=== PATIENT | female | born 1955 | race African-American/Black ===

== ENCOUNTER 2019-11-05 20:51 | Emergency (ER) | payer OTHER ==
[~2019-11-05] VITALS: Ht 157.5 cm; Wt 68.0 kg
[2019-11-05] MEDS ORDERED: KETOROLAC TROMETHAMINE 30 MG/ML VIAL IM ONE (21:15)
[2019-11-05] MEDS ORDERED: ACETAMINOPHEN 325 MG TAB PO ONE (21:15)
[2019-11-05] MEDS ORDERED: ACETAMINOPHEN 325 MG TAB ONE (21:20)
[2019-11-05] MEDS ORDERED: KETOROLAC TROMETHAMINE 30 MG/ML VIAL ONE (21:20)
--- OUTSIDE RECORDS SUMMARY | 2019-11-05 21:27 | XMS REPORT | Continuity of Care Document ---
Author Author [facility] t Organization [facility] Address [address] [place] [address] Phone Unavailable Care Team Providers Care Rhinologist Name Role Phone Unavailable Unavailable Payers Payer Name Policy Type Policy Number Effective Date Expiration Date S ource Problems Condition Name Condition Details Condition Category Status Onset Date Resolution Date Last Treatment Date Treating Clinician Comments Source Cystocele Cystocele Problem Active 2018-11-05 00:00:00 [facility] Stenosis of cervix Stenosis of Cervix Problem Active 2018-11-05 00:00:0 0 [facility] Type 2 diabetes mellitus Type 2 Diabetes Mellitus Problem Acti ve 2017-07-14 00:00:00 [facility] Proteinuric nephropathy due to diabetes mellitus Prote inuric Nephropathy Due to Diabetes Mellitus Problem Active 2017-02-10 00:00:00 [facility] Mixed hyperlipidemia Mixed [facility] Benign essential hypertension Benign Essential Hypertension Problem Active 2017-02-10 00:00:00 [facility] Immunization Immunization Problem Active 2017-02-10 00:00:00 [facility] Allergies, Adverse Reactions, Alerts This patient has no known allergies or adverse reactions. Social History Smoking Status Start Date Stop Date Source Never Smoker [facility] Demetri de anda Medications Ordered Medication Name Filled Medication Name Start Date Stop Da te Current Medication? Ordering Clinician Indication Dosage Frequency Signature (SIG) Comments Components Source amlodipine 10 mg tablet Take 1 tablet every day by ora l route. amlodipine 10 mg tablet Take 1 tablet every day by oral route. No 1 Q1D amlodipine 10 mg tablet Take 1 tablet every day by oral route. [facility] atorvastatin 20 mg tablet Take 1 tablet every day by o ral route. atorvastatin 20 mg tablet Take 1 tablet every day by oral route. No 1 Q1D atorvastatin 20 mg tablet Take 1 tablet every day by oral route. [facility] Ecotrin Low Strength 81 mg tablet,enteri c coated Take 1 tablet every day by oral route. Ecotrin Low Strength 81 mg tablet,enteri c coated Take 1 tablet every day by oral route. No Ecotrin L ow Strength 81 mg tablet,enteric coated Take 1 tablet every day by oral route. [facility] glimepiride 2 mg tablet Take 1 tablet tw ice a day by oral route with meals for 90 days. glimepiride 2 mg tablet Take 1 tablet tw ice a day by oral route with meals for 90 days. No 1 BID glime piride 2 mg tablet Take 1 tablet twice a day by oral route with meals for 90 days. [facility] hydrochlorothiazide 25 mg tablet Take 1 tablet every d ay by oral route. hydrochlorothiazide 25 mg tablet Take 1 tablet every day by oral route. No 1 Q1D hydrochlorothiazide 25 mg ta blet Take 1 tablet every day by oral route. [facility] metformin ER 500 mg tablet,extended release 24 hr TAKE 2 TABLETS TWICE A DAY metformin ER 500 mg tablet,extended release 24 hr TAKE 2 TABLETS TWICE A DAY No metformin ER 5 00 mg tablet,extended release 24 hr TAKE 2 TABLETS TWICE A DAY [facility] metoprolol succinate ER 100 mg tablet,ex tended release 24 hr Take 1 tablet every day by oral route. metoprolol succinate ER 100 mg tablet,ex tended release 24 hr Take 1 tablet every day by oral route. No 1 Q1D metoprolol succinate ER 100 mg tablet,extended release 24 hr Take 1 tablet every day by oral route. [facility] olmesartan 40 mg tablet Take 1 tablet every day by ora l route. olmesartan 40 mg tablet Take 1 tablet every day by oral route. No 1 Q1D olmesartan 40 mg tablet Take 1 tablet every day by oral route. [facility] Immunizations Ordered Immunization Name Filled Immunization Name Date Status Comments Source influenza, injectable, quadrivalent influenza, injectable, q uadrivalent 2019-02-03 00:00:00 Completed [facility] ice Tdap Tdap 2018-11-05 11:21:00 Completed [facility] Influenza, injectable, MDCK, quadrivalent Influenza, i njectable, MDCK, quadrivalent Unknown Completed [facility] Vital Signs Vital Name Observation Time Observation Value Comments Source BP Diastolic 2019-02-23 00:00:00 70 mm[Hg] [facility] Height 2019-02-23 00:00:00 62 [in_i] [facility] BMI (Body Mass Index) 2019-02-23 00:00:00 28.9 kg/m2 [facility] BP Systolic 2019-02-23 00:00:00 148 mm[Hg] [facility] Body Weight 2019-02-23 00:00:00 158 [lb_av] [facility] BP Diastolic 2018-11-05 00:00:00 80 mm[Hg] [facility] Height 2018-11-05 00:00:00 62 [in_i] [facility] BMI (Body Mass Index) 2018-11-05 00:00:00 28.9 kg/m2 [facility] BP Systolic 2018-11-05 00:00:00 150 mm[Hg] [facility] Body Weight 2018-11-05 00:00:00 158 [lb_av] [facility] BP Diastolic 2018-07-06 00:00:00 72 mm[Hg] [facility] Height 2018-07-06 00:00:00 62 [in_i] [facility] BMI (Body Mass Index) 2018-07-06 00:00:00 27.6 kg/m2 [facility] BP Systolic 2018-07-06 00:00:00 134 mm[Hg] [facility] Body Weight 2018-07-06 00:00:00 151 [lb_av] [facility] BP Diastolic 2018-05-11 00:00:00 78 mm[Hg] [facility] Height 2018-05-11 00:00:00 62 [in_i] [facility] BMI (Body Mass Index) 2018-05-11 00:00:00 28.1 kg/m2 [facility] BP Systolic 2018-05-11 00:00:00 154 mm[Hg] [facility] Body Weight 2018-05-11 00:00:00 153.4 [lb_av] [facility] BP Diastolic 2017-07-14 00:00:00 90 mm[Hg] [facility] Height 2017-07-14 00:00:00 62 [in_i] [facility] BMI (Body Mass Index) 2017-07-14 00:00:00 27.4 kg/m2 [facility] BP Systolic 2017-07-14 00:00:00 180 mm[Hg] [facility] Body Weight 2017-07-14 00:00:00 150 [lb_av] [facility] BP Diastolic 2017-02-21 00:00:00 80 mm[Hg] [facility] Height 2017-02-21 00:00:00 62 [in_i] [facility] BMI (Body Mass Index) 2017-02-21 00:00:00 27.5 kg/m2 [facility] BP Systolic 2017-02-21 00:00:00 144 mm[Hg] [facility] Body Weight 2017-02-21 00:00:00 150.6 [lb_av] [facility] BP Diastolic 2017-02-10 00:00:00 90 mm[Hg] [facility] Height 2017-02-10 00:00:00 62 [in_i] [facility] BMI (Body Mass Index) 2017-02-10 00:00:00 27.8 kg/m2 [facility] BP Systolic 2017-02-10 00:00:00 160 mm[Hg] [facility] Body Weight 2017-02-10 00:00:00 152 [lb_av] [facility] Procedures Procedure Date / Time Performed Performing Clinician Sour e MAMMO, screening, bilateral 2018-11-05 00:00:00 [facility] MAMMO, screening, bilateral 2016-09-11 00:00:00 [facility] Plan of Care Planned Activity Planned Date Details Comments Source Diagnostic Test Pending 2019-02-23 00:00:00 glucose, fingers tick, blood [code = glucose, fingerstick, blood] [facility] Diagnostic Test Pending 2019-02-23 00:00:00 HbA1c (hemoglobi n A1c), blood [code = HbA1c (hemoglobin A1c), blood] [facility] P[facility] 2019-02-23 00:00:00 lipid panel, ser um [code = lipid panel, serum] [facility] Encounters Start Date/Time End Date/Time Encounter Type Admission Type [facility] Facility Care Department Encounter ID Source 2019-02-23 00:00:00 2019-02-23 00:00:00 Jesus Mascorro Jr, MD: [address], [place] [address], Ph. [facility] - [facility] - VM_HOU_Hobby [id number] [facility] 2018-11-05 00:00:00 2018-11-05 00:00:00 Jesus Mascorro Jr, MD: [address], [address], [place] [address], Ph. [facility] - VFP-Hobby [id number] [facility] 2018-07-06 00:00:00 2018-07-06 00:00:00 Jesus Mascorro Jr, MD: [address], [address], [place] [address], Ph. [facility] - [facility] [id number] [facility] 2018-05-11 00:00:00 2018-05-11 00:00:00 Jesus Mascorro Jr, MD: [address], [place] [address], Ph. [facility] - [facility] [id number] [facility] 2017-07-14 00:00:00 2017-07-14 00:00:00 Jesus Mascorro Jr, MD: [address], [place] [address], Ph. [facility] - [facility] [id number] [facility] 2017-02-21 00:00:00 2017-02-21 00:00:00 Jesus Mascorro Jr, MD: [address], [place] [address], Ph. [facility] - [facility] [id number] [facility] 2017-02-10 00:00:00 2017-02-10 00:00:00 Jesus Mascorro Jr, MD: [address], [place] [address], Ph. [facility] [id number] [facility] Results Test Description Test Time Test Comments Results Result Comments Source Glucose [Mass/volume] in Capillary blood 2018-11-05 10:23:00 Test Item Blood Glucose: mg/dl (test code = Blood Glucose: mg/dl) 165 [facility] (dipstick) panel - [id number] 10:23:00* Test Item Value Reference Range Interpretation Comments Color Color (test code = Color Color) light yellow Color Appearance (test code = Color Appearance) clear Color Glucose (test code = Color Glucose) negative Color Bilirubin (test code = Color Bilirubin) negative Color Ketones (test code = Color Ketones) negative Color Specific Lostant (test code = Color Specific Lostant) 1.025 Color Blood (test code = Color Blood) negative Color PH (test code = Color PH) 5.0 Color Protein (test code = Color Protein) negative Color Urobilinogen (test code = Color Urobilinogen) 0.2 Color Nitrites (test code = Color Nitrites) negative Color Leukocytes (test code = Color Leukocytes) negative [facility] RNA [Units/volume] (viral load) in Serum or Plasma by Probe and target amplification [id number] 05:32:00* Test Item Value Reference Range Interpretation Comments hepatitis C antibody (test code = hepatitis C antibody) non- reactive non-reactive signal to cut-off (test code = signal to cut-off) 0.05 <1.0 0 [facility] A[facility]/Hemoglobin.total in [id number] 23:00:00* Test Item Value Reference Range Interpretation Comments hemoglobin A1C (test code = hemoglobin A1C) 7.7 % of total HGB <5.7 H EAG (mg/dL) (test code = EAG (mg/dL)) 174 (calc) EAG (mmol/L) (test code = EAG (mmol/L)) 9.7 (calc) [facility]in [Units/volume] in Serum or [id number] 23:00:00* Test Item Value Reference Range Interpretation Comments TSH (test code = TSH) 2.07 mIU/L 0.40-4.50 [facility]wid04-Iuvvrlvygfzqnd D [Mass/volume] in Serum or Plasma 2017-02-21 22:47:00* Test Item Value Reference Range Interpretation Comments vitamin D,25-oh,total,ia (test code = vitamin D,25-oh,total,ia) 34 NG/mL 30-100 [facility] Auto Differential panel - [id number] 22:38:00 * Test Item Value Reference Range Interpretation Comments white blood cell count (test code = white blood cell count) 9.0 thousand/uL 3.8-10.8 red blood cell count (test code = red blood cell count) 4.39 million/uL 3.80-5.10 hemoglobin (test code = hemoglobin) 12.4 g/dL 11.7-15.5 hematocrit (test code = hematocrit) 38.5 % 35.0-45.0 MCV (test code = MCV) 87.7 fL 80.0-100.0 MCH (test code = MCH) 28.2 pg 27.0-33.0 MCHC (test code = MCHC) 32.2 g/dL 32.0-36.0 RDW (test code = RDW) 12.2 % 11.0-15.0 platelet count (test code = platelet count) 369 thousand/uL 140-400 MPV (test code = MPV) 9.7 fL 7.5-12.5 absolute neutrophils (test code = absolute neutrophils) 6696 duglas ls/uL 2300-3886 absolute band neutrophils (test code = absolute band neutrophils) absolute metamyelocytes (test code = absolute metamyelocytes) absolute myelocytes (test code = absolute myelocytes) absolute promyelocytes (test code = absolute promyelocytes) absolute lymphocytes (test code = absolute lymphocytes) 1629 duglas ls/uL 850-3900 absolute monocytes (test code = absolute monocytes) 477 cells/uL 20 0-950 absolute eosinophils (test code = absolute eosinophils) 144 cells/u L 15-500 absolute basophils (test code = absolute basophils) 54 cells/uL 0- 200 absolute blasts (test code = absolute blasts) absolute nucleated RBC (test code = absolute nucleated RBC) neutrophils (test code = neutrophils) 74.4 % band neutrophils (test code = band neutrophils) metamyelocytes (test code = metamyelocytes) myelocytes (test code = myelocytes) promyelocytes (test code = promyelocytes) lymphocytes (test code = lymphocytes) 18.1 % reactive lymphocytes (test code = reactive lymphocytes) monocytes (test code = monocytes) 5.3 % eosinophils (test code = eosinophils) 1.6 % basophils (test code = basophils) 0.6 % blasts (test code = blasts) nucleated RBC (test code = nucleated RBC) comment(s) (test code = comment(s)) [facility] panel - Serum or Plasma 2017-02-21 22:06:00* Test Item Value Reference Range Interpretation Comments glucose (test code = glucose) 128 mg/dL 65-99 H urea nitrogen (BUN) (test code = urea nitrogen (BUN)) 19 mg/dL 7-25 creatinine (test code = creatinine) 0.74 mg/dL 0.50-0.99 eGFR non-afr. bermudian (test code = eGFR non-afr. bermudian) 88 mL/min/1.73m2 > or = 60 eGFR (test code = eGFR ) 10 2 mL/min/1.73m2 > or = 60 BUN/creatinine ratio (test code = BUN/creatinine ratio) not applica ble 6-22 sodium (test code = sodium) 137 mmol/L 135-146 potassium (test code = potassium) 3.5 mmol/L 3.5-5.3 chloride (test code = chloride) 98 mmol/L 98-110 carbon dioxide (test code = carbon dioxide) 26 mmol/L 20-31 calcium (test code = calcium) 9.7 mg/dL 8.6-10.4 protein, total (test code = protein, total) 8.4 g/dL 6.1-8.1 H albumin (test code = albumin) 4.9 g/dL 3.6-5.1 globulin (test code = globulin) 3.5 g/dL (calc) 1.9-3.7 albumin/globulin ratio (test code = albumin/globulin ratio) 1.4 (calc) 1.0-2.5 bilirubin, total (test code = bilirubin, total) 0.4 mg/dL 0.2-1. 2 alkaline phosphatase (test code = alkaline phosphatase) 56 U/L 33-130 AST (test code = AST) 17 U/L 10-35 ALT (test code = ALT) 15 U/L 6-29 [facility] panel - Serum or [id number] 22:06:00* Test Item Value Reference Range Interpretation Comments cholesterol, total (test code = cholesterol, total) 170 mg/dL <2 00 HDL cholesterol (test code = HDL cholesterol) 39 mg/dL >50 L triglycerides (test code = triglycerides) 78 mg/dL <150 LDL-cholesterol (test code = LDL-cholesterol) 114 mg/dL (calc) H chol/HDLC ratio (test code = chol/HDLC ratio) 4.4 (calc) <5.0 non HDL cholesterol (test code = non HDL cholesterol) 131 mg/dL (ca lc) <130 H [facility] 1999 panel - Serum or Plasma 2016-09-12 13:39:00* Test Item Value Reference Range Interpretation Comments ALT (test code = ALT) 10 U/L 0-55 AST (test code = AST) 14 U/L 5-34 BUN (test code = BUN) 15.5 mg/dL 9.8-20.1 alk phos (test code = alk phos) 50 unit/L 40-150 glucose (test code = glucose) 132 mg/dL 70-99 H albumin (test code = albumin) 4.1 g/dL 3.5-5.0 creatinine (test code = creatinine) 0.81 mg/dL 0.57-1.11 eGFR non- (test code = eGFR non-) > 60 >60 total bilirubin (test code = total bilirubin) 0.3 mg/dL 0.2-1.2 eGFR - (test code = eGFR - ) >60 >60 sodium (test code = sodium) 138 mEq/L 136-145 potassium (test code = potassium) 3.9 mEq/L 3.5-5.1 chloride (test code = chloride) 102 mmol/L 98-107 total protein (test code = total protein) 8.2 g/dL 6.4-8.3 calcium (test code = calcium) 9.8 mg/dL 8.4-10.2 CO2 (test code = CO2) 25.1 mmol/L 23.0-31.0 anion gap (test code = anion gap) 11 calc [facility] panel - Serum or [id number] 13:39:00* Test Item Value Reference Range Interpretation Comments HDL (test code = HDL) 39 mg/dL 40-60 L triglyceride (test code = triglyceride) 93 mg/dL 0-149 VLDL calc. (test code = VLDL calc.) 19 mg/dL cholesterol/HDL ratio (test code = cholesterol/HDL ratio) 5 mg/dL non-HDL cholesterol calc. (test code = non-HDL cholesterol c alc.) 167 mg/dL 0-160 H cholesterol (test code = cholesterol) 206 mg/dL 0-199 H LDL calc. (test code = LDL calc.) 148 mg/dL 0-130 H [facility] [Units/volume] in Serum or [id number] 13:39:00* Test Item Value Reference Range Interpretation Comments TSH (test code = TSH) 1.655 uIU/mL 0.350-4.940 [facility] Differential panel - [id number] 10:20:00 * Test Item Value Reference Range Interpretation Comments WBC (test code = WBC) 8.75 x10*3/?L 2.60-11.20 RBC (test code = RBC) 4.26 10*12/L 3.93-5.87 hemoglobin (test code = hemoglobin) 12.50 g/dL 10.70-15.70 hematocrit (test code = hematocrit) 37.8 % 33.2-46.8 MCV (test code = MCV) 88.7 fL 77.8-103.4 MCH (test code = MCH) 29.3 pg 24.8-35.0 MCHC (test code = MCHC) 33.1 g/dL 31.5-35.9 RDW-SD (test code = RDW-SD) 39.3 fL 35.8-50.4 platelet count (test code = platelet count) 313.0 k/uL 126.7-416. 1 MPV (test code = MPV) 10.9 fL 8.3-13.5 neut% (test code = neut%) 71.8 % 39.5-76.9 lymph% (test code = lymph%) 21.3 % 12.6-45.8 mon% (test code = mon%) 5.3 % 3.7-12.9 eos% (test code = eos%) 1.3 % 0.7-6.4 baso% (test code = baso%) 0.3 % 0.1-1.5 neut# (test code = neut#) 6.3 x10*3/?L 0.6-7.6 lymph# (test code = lymph#) 1.9 x10*3/?L 0.7-3.3 mon# (test code = mon#) 0.5 x10*3/?L 0.2-1.0 eos# (test code = eos#) 0.11 x10*3/?L 0.04-0.44 baso# (test code = baso#) 0.03 x10*3/?L 0.01-0.08 [facility] A1[facility]/Hemoglobin.total in [id number] 09:55:00* Test Item Value Reference Range Interpretation Comments A1C w/EAG (test code = A1C w/EAG) 7.4 % 1.0-5.7 H average blood glucose (test code = average blood glucose) 166 mg/dL [facility]
--- OUTSIDE RECORDS SUMMARY | 2019-11-05 21:27 | XMS REPORT | Encounter Summary ---
Author Organization Unknown Address [address] [place] [address] Phone [phone] Care Team Providers Care [place] Hand Name Role Phone Dr. Jesus Mascorro 3 [phone] Jesus Mascorro Jr, MD 3 [phone] Reason for Visit hyperlipidemia; hypertension; diabetes Instructions 1. Type 2 diabetes mellitus glucose, fingerstick, blood diabetic ophthalmology referral HbA1c (hemoglobin A1c), blood glimepiride 2 mg tablet 2. Mixed hyperlipidemia lipid panel, serum atorvastatin 20 mg tablet 3. Benign essential hypertension amlodipine 10 mg tablet hydrochlorothiazide 25 mg tablet metoprolol succinate ER 100 mg tablet, extended release 24 hr olmesartan 40 mg tablet Discussion Note: None recorded. Patient educational handouts: No information available. Plan of Care Reminders Provider Appointments None recorded. Lab Glucose, Fingerstick, Blood 02/23/2019 _h ou_yusefby HbA1C (Hemoglobin a1C), Blood 02/23/2019 [facility] Lipid Panel, Serum 02/23/2019 [facility] Referral Diabetic Ophthalmology Referral 02/23/2019 Nancy Pablo MD Procedures None recorded. Surgeries None recorded. Imaging None recorded. Medications Name Start Date amlodipine 10 mg tablet Take 1 tablet every day by oral route. atorvastatin 20 mg tablet Take 1 tablet every day by oral route. Ecotrin Low Strength 81 mg tablet,enteri c coated Take 1 tablet every day by oral route. glimepiride 2 mg tablet Take 1 tablet twice a day by oral route with meals for 90 days. hydrochlorothiazide 25 mg tablet Take 1 tablet every day by oral route. metformin ER 500 mg tablet,extended rele ase 24 hr TAKE 2 TABLETS TWICE A DAY metoprolol succinate ER 100 mg tablet,ex tended release 24 hr Take 1 tablet every day by oral route. olmesartan 40 mg tablet Take 1 tablet every day by oral route. Medications Administered None recorded. Vitals Height Weight BMI Blood Pressure 5 ft 2 in 158 lbs 28.9 kg/m2 (1) 148/70 mm[H g] (2) 138/72 mm[Hg] Results Lab Results None recorded. Allergies Code Code System Name Reaction Severity Status Onset NKDA Problems Name Status Onset Date Source Proteinuric Nephropathy Due to Diabetes Mellitus Active 02/10/2017 Mixed Hyperlipidemia Active 02/10/2017 Benign Essential Hypertension Active 02/10/2017 Immunization Active 02/10/2017 Type 2 Diabetes Mellitus Active 07/14/2017 Cystocele Active 11/05/2018 Stenosis of Cervix Active 11/05/2018 Procedures None recorded. Vaccine List Vaccine Type Influenza, injectable, MDCK, quadrivalen t 0.5 mL influenza, injectable, quadrivalent 02/03/2019 Tdap 11/05/20180.5 mL Social History Tobacco Smoking Status Never Smoker Past Encounters 02/23/2019 Type 2 Diabetes Mellitus; Mixed Hyperlipidemia; Benign Essential Hypertension Jesus Mascorro Jr, MD: [address] [facility] [facility] [address], [place] [address], Ph. History of Present Illness Hypertension Reported By: Patient HPI: Severity: mild. Onset/Timing : gradual onset. Alleviating Factors: relieved with rest, medication. Self Care: not under emotional stress, blood pressure goal: 130/80. Associated Symptoms: no shortness of breath, no fatigue, no decline in exercise capacity Diabetes F/U Reported By: Patient HPI: Labs: last A1C result: 8.3. Context: no side effects from medications. Associated Symptoms: no dizziness, no sweats, no headaches, no confusion, no increased thirst, no increased appetite, no increased urination, no blurred vision, no numbness of feet Notes: Endorses medication complian ce. Hyperlipidemia Reported By: Patient HPI: Type of hyperlipidemia: comb ined, hypercholesterolemia. Duration: chronic. Current Therapy: currently taking: atorvastatin, last LDL level: 119 date: 119, last HDL level: 35 date: 35. Complications: no coronary artery disease. Risk Factors: diabetes, hypertension Hypertension Reported By: Patient Review of Systems Comprehensive General Adult ROS, Diabetes F/U ROS Reported By: Patient Constitutional: Constitutional: no significa nt weight gain, no significant weight loss Cardiovascular: Cardiovascular: no chest aditi n, no shortness of breath when walking Respiratory: Respiratory: no cough, no wh eezing, no shortness of breath Endocrine: Endocrine: no fatigue Physical Exam Cardiology Exam, Diabetes, D iabetic Foot Exam Reported By: Patient Constitutional: General Appearance: well-nou rished, well-developed, appears stated age. Level of Distress: comfortable Lungs: Respiratory Effort: unlabore d. Chest Exam: no chest wall tenderness. Auscultation: clear, no wheezing, no rales, no rhonchi Cardiovascular: Rate And Rhythm: regular. He art Sounds: normal S1, physiologically split S2, no rub, no gallop, no click. Systolic Murmur: not heard. Diastolic Murmur: not heard. Extremities: no cyanosis, no edema, no peripheral signs of emboli Peripheral Pulses: Pulses: full and equal in al l extremities except if noted Skin: Inspection and Palpation: wa rm and dry
--- OUTSIDE RECORDS SUMMARY | 2019-11-05 21:27 | XMS REPORT ---
Author Organization Unknown Address [address] [place] [address] Phone [phone] Care Team Providers Care Associate [employer] Name Role Phone Jesus Mascorro Jr Unavailable Unavailable Allergies Code Code System Name Reaction Severity Status Onset NKDA Medications Name Status Start Date Stop Date amlodipine 5 mg tablet Take 1 tablet every day by oral route for 90 days. Active Not available atorvastatin 10 mg tablet Take 1 tablet every day by oral route for 90 days. Active Not available hydrochlorothiazide 12.5 mg capsule Take 1 capsule every day by oral route for 90 days. Active Not available hydrochlorothiazide 25 mg tablet Completed 07/14/2017 lisinopril 20 mg tablet Completed 07/15/19 18 lisinopril 40 mg tablet Completed 07/15/19 18 lisinopril 5 mg tablet Completed 7 metformin ER 500 mg tablet,extended rele ase 24 hr TAKE 2 TABLETS TWICE A DAY Active Not availabl e phenazopyridine 200 mg tablet Completed sulfamethoxazole 800 mg-trimethoprim 160 mg tablet Completed 02/10/2017 Suprep Bowel Prep Kit 17.5 gram-3.13 gram-1.6 gram oral solution Completed 02/10/2017 valsartan 160 mg tablet Take 1 tablet every day by oral route. Active Not available Problems Name Status Onset Date Source Type II Diabetes Mellitus Uncontrolled Unknown 7 Proteinuric Diabetic Nephropathy Active 02/10/2017 Mixed Hyperlipidemia Active 02/10/2017 Benign Essential Hypertension Active 02/10/2017 Immunization Active 02/10/2017 Type 2 Diabetes Mellitus with Multiple Complications Unknown 02/10/2017 Type 2 Diabetes Mellitus Active 07/14/2017 Procedures Date Name Performed by 09/11/2016 MAMMO, Screening, Bilateral [facility] [address] [place] [address] (Work Place) Lab Results Date Name Specimen Result Interpretation Description Value Range Status Address 02/21/2017 Hepatitis C Virus RNA, Quant, PCR, Serum or Plasma Normal Hepatitis C Antibody non-reactive non-reactive Final [facility] Laboratory: [address] [place] Normal Signal to Cut-off 0.05 <1.00 Izabela kapadia [facility] Laboratory: [address] [place] 02/21/2017 CBC W/ Auto Diff Normal White Blood Cell Co unt 9.0 thousand/uL 3.8-10.8 thousand/uL Final [facility] ratory: [address] [place] Normal Red Blood Cell Count 4.39 mill ion/uL 3.80-5.10 million/uL Final [facility] Laboratory: [address] [place] Normal Hemoglobin 12.4 g/dL 11.7-15.5 g/dL Final [facility] Laboratory: [address] [place] Normal Hematocrit 38.5 % 35.0-45.0 % Final [facility] Laboratory: [address] [place] Normal Mcv 87.7 fL 80.0-100.0 fL Final [facility] Laboratory: [address] [place] Normal Mch 28.2 pg 27.0-33.0 pg Final [facility] Laboratory: [address] [place] Normal Mchc 32.2 g/dL 32.0-36.0 g/dL Final [facility] Laboratory: [address] [place] Normal Rdw 12.2 % 11.0-15.0 % Final [facility] Laboratory: [address] [place] Normal Platelet Count 369 thousand/uL 140-4 00 thousand/uL Final [facility] Laboratory: [address] [place] Normal Mpv 9.7 fL 7.5-12.[address] [facility] Laboratory: [address] [place] Normal Absolute Neutrophils 6696 cells/uL 1 500-7800 cells/uL Final [facility] Laboratory: [address] [place] Absolute Band Neutrophils Preliminary [facility] Laboratory: [address], [place] Absolute Metamyelocytes Preliminary [facility] Laboratory: [address] [place] Absolute Myelocytes Pr eliminary [facility]: [address] [facility] Absolute Promyelocytes Preliminary [facility] Laboratory: [address], [place] Normal Absolute Lymphocytes 1629 cells/uL 8 50-3900 cells/uL Final [facility] Laboratory: [address], [place] Normal Absolute Monocytes 477 cells/uL 200- 950 cells/uL Final [facility] Laboratory: [address], [place] Normal Absolute Eosinophils 144 cells/uL 15 -500 cells/uL Final [facility] Laboratory: [address], [place] Normal Absolute Basophils 54 cells/uL 0-200 cells/uL Final [facility] Laboratory: [address], [place] Absolute Blasts Prelim [facility] Laboratory: [address], [place] Absolute Nucleated RBC Preliminary [facility] Laboratory: [address], [place] Normal Neutrophils 74.4 % Final [facility] Laboratory: [address], [place] Band Neutrophils Preli [facility] Laboratory: [address], [place] Metamyelocytes Prelimi [facility] Laboratory: [address], [place] Myelocytes Preliminary [facility] Laboratory: [address], [place] Promyelocytes Prelimin [facility] Laboratory: [address], [place] Normal Lymphocytes 18.1 % Final [facility] Laboratory: [address], [place] Reactive Lymphocytes [facility]: [address], [place] Normal Monocytes 5.3 % Final [facility] Laboratory: [address], [place] Normal Eosinophils 1.6 % Final [facility] Laboratory: [address], [place] Normal Basophils 0.6 % Final [facility] Laboratory: [address], [place] Blasts Preliminary [facility] Laboratory: [address], [place] Nucleated RBC Prelimin [facility] Laboratory: [address], [place] Comment(s) Preliminary [facility] Laboratory: [address], [place] 02/21/2017 HbA1C (Hemoglobin a1C), Blood High Hemoglobin a1C 7.7 % of total HGB <5.7 % of total HGB [facility]: [address] [place] EAG (mg/dL) 174 (calc) Final [facility] Laboratory: [address] [place] EAG (mmol/L) 9.7 (calc) Final [facility] Laboratory: [address] [place] 02/21/2017 CMP, Serum or Plasma High Glucose 128 mg/dL 65-99 mg/dL Final [facility]: [address] [facility] Normal Urea Nitrogen (BUN) 19 mg/dL 7-25 mg /dL Final [facility] Laboratory[facility] [address] [facility] Normal Creatinine 0.74 mg/dL 0.50-0.99 mg/d L Final [facility] Laboratory: [address] Normal eGFR Non-afr. Welsh 88 mL/m in/1.73m2 > or = 60 mL/min/1.73m2 Final [facility]atory: [address] [place] [address] Normal eGFR 102 mL/m in/1.73m2 > or = 60 mL/min/1.73m2 Final [facility] Lab[facility] ratory: [address] BUN/creatinine Ratio not applicable (calc) 6-22 (calc) Final [facility]: [address] [facility] Normal Sodium 137 mmol/L 135-146 mmol/L [facility] Laboratory: [address] [place] [address] Normal Potassium 3.5 mmol/L 3.5-5.3 mmol/L Final [facility] Laboratory: [address] Normal Chloride 98 mmol/L 98-110 mmol/L [facility] Laboratory: [address] [place] [address] Normal Carbon Dioxide 26 mmol/L 20-31 mmol/ L Final [facility] Laboratory: [address] [place] [address] Normal Calcium 9.7 mg/dL 8.6-10.4 mg/dL [facility] Laboratory: [address] [place] [address] High Protein, Total 8.4 g/dL 6.1-8.1 g/dL Final [facility] Laboratory: [address] [facility] Normal Albumin 4.9 g/dL 3.6-5.1 g/dL Final [facility] Laboratory: [address] Normal Globulin 3.5 g/dL (calc) 1.9-3.7 g/d L (calc) Final [facility] Laboratory: [address] Normal Albumin/globulin Ratio 1.4 (calc) 1. 0-2.5 (calc) Final [facility] Laboratory: [address] Normal Bilirubin, Total 0.4 mg/dL 0.2-1.2 m g/dL Final [facility] Laboratory: [address] Normal Alkaline Phosphatase 56 U/L 33-130 U /L Final [facility] Laboratory: [address] Normal Ast 17 U/L 10-35 U/L Final [facility] Laboratory: [address] Normal Alt 15 U/L 6-29 U/L Final [facility] Laboratory: [address] 02/21/2017 Lipid Panel, Serum Normal Cholesterol, Tota l 170 mg/dL <200 mg/dL Final [facility] Lab[facility] ratory: [address] Low HDL Cholesterol 39 mg/dL >50 mg/dL F inal [facility] Laboratory: [address] Normal Triglycerides 78 mg/dL <150 mg/dL Fi nal [facility] Laboratory: [address] High LDL-cholesterol 114 mg/dL (calc) Final [facility] Laboratory: [address] Normal Chol/hdlc Ratio 4.4 (calc) <5.0 (chrissy c) Final [facility] Laboratory: [address] High Non HDL Cholesterol 131 mg/dL (calc) <130 mg/dL (calc) Final [facility] Laboratory: [address] 02/21/2017 TSH, Serum or Plasma Normal Tsh 2.07 mIU /L 0.40-4.50 mIU/L Final [facility] Laboratory: [address] 02/21/2017 Vitamin D, 25-Hydroxy, Total, Serum Normal Vitamin D,25- Oh,total,ia 34 NG/mL 30-100 NG/mL Final [facility] Laboratory: [address] [place] 09/11/2016 CBC W/ Auto Diff Wbc 8.75 x10*3/L 2.6 0-11.20 x10*3/L Final [facility] Laboratory[facility] [address] [facility] Rbc 4.26 10*12/L 3.93-5.87 10*12/L Final [facility] Laboratory: [address] [facility] Hemoglobin 12.50 g/dL 10.70-15.70 g/ dL Final [facility] Laboratory: [address] [facility] Hematocrit 37.8 % 33.2-46.8 % Final [facility] Laboratory: [address] [facility] Mcv 88.7 fL 77.8-103.4 fL Final [facility] Laboratory: [address] [place] [address] Mch 29.3 pg 24.8-35.0 pg Final [facility] Laboratory: [address] [facility] Mchc 33.1 g/dL 31.5-35.9 g/dL Final [facility] Laboratory: [address] [facility] RDW-SD 39.3 fL 35.8-50.4 fL Final [facility] Laboratory: [address] [facility] Platelet Count 313.0 k/uL 126.7-416. 1 k/uL Final [facility] Laboratory: [address] [place] [address] Mpv 10.9 fL 8.3-13.5 fL Final [facility] Laboratory: [address] [facility] Neut% 71.8 % 39.5-76.9 % Final [facility] Laboratory: [address] [place] [address] Lymph% 21.3 % 12.6-45.8 % Final [facility] Laboratory[facility] [address] [facility] Mon% 5.3 % 3.7-12.9 % Final [facility] e [facility] Laboratory[facility] [address] [facility] Eos% 1.3 % 0.7-6.4 % Final [facility] Laboratory: [address] [place] [address] Baso% 0.3 % 0.1-1.5 % Final [facility] Laboratory: [address] [facility] [place] Neut# 6.3 x10*3/L 0.6-7.6 x10*3/L Final [facility] Laboratory: [address] [place] [address] Lymph# 1.9 x10*3/L 0.7-3.3 x10*3/L Final [facility] Laboratory: [address] [facility] [place] Mon# 0.5 x10*3/L 0.2-1.0 x10*3/L F eriel [facility] Laboratory: [address] [place] [address] Eos# 0.11 x10*3/L 0.04-0.44 x10*3/ L Final [facility] Laboratory: [address] [place] [address] Baso# 0.03 x10*3/L 0.01-0.08 x10*3/ L Final [facility] Laboratory: [address] 09/11/2016 CMP, Serum or Plasma Alt 10 U/L 0-55 U /L Final [facility] Laboratory: [address] Ast 14 U/L 5-34 U/L Final [facility] Laboratory: [address] Bun 15.5 mg/dL 9.8-20.1 mg/dL Final [facility] Laboratory: [address] Alk Phos 50 unit/L 40-150 unit/L Fin [facility] Laboratory: [address] High Glucose 132 mg/dL 70-99 mg/dL Final [facility] Laboratory: [address] Albumin 4.1 g/dL 3.5-5.0 g/dL Final [facility] Laboratory: [address] Creatinine 0.81 mg/dL 0.57-1.11 mg/d L Final [facility] Laboratory: [address] eGFR Non- >60 mL/min/1.73m2 >60 mL/min/1.73m2 Final [facility] Laboratory: [address] Total Bilirubin 0.3 mg/dL 0.2-1.2 mg /dL Final [facility] Laboratory: [address] eGFR - >60 mL/min/1 .73m2 >60 mL/min/1.73m2 Final [facility] Laboratory: [address] [place] [address], [place] Sodium 138 mEq/L 136-145 mEq/L [facility] Laboratory: [address] Potassium 3.9 mEq/L 3.5-5.1 mEq/L [facility] Laboratory: [address] [place] [address], [place] Chloride 102 mmol/L 98-107 mmol/L [facility] Laboratory: [address] Total Protein 8.2 g/dL 6.4-8.3 g/dL [facility] Laboratory: [address] Calcium 9.8 mg/dL 8.4-10.2 mg/dL [facility] Laboratory: [address] Co2 25.1 mmol/L 23.0-31.0 mmol/L [facility] Laboratory: [address] Anion Gap 11 calc Final [facility] Laboratory: [address] 09/11/2016 Lipid Panel, Serum Low Hdl 39 mg/dL 40-60 mg/dL [facility] Laboratory: [address] Triglyceride 93 mg/dL 0-149 mg/dL [facility] Laboratory: [address] VLDL Calc. 19 mg/dL Final [facility] Laboratory: [address] cholesterol/HDL Ratio 5 mg/dL [facility] Laboratory: [address] High non-HDL Cholesterol Calc. 167 mg/dL 0-160 mg/dL [facility] Laboratory: [address] High Cholesterol 206 mg/dL 0-199 mg/dL [facility] Laboratory: [address] High LDL Calc. 148 mg/dL 0-130 mg/dL [facility] Laboratory: [address] 09/11/2016 TSH, Serum or Plasma Tsh 1.655 uI U/mL 0.350-4.940 uIU/mL Final [facility] Laboratory: [address], [place] 09/11/2016 HbA1C (Hemoglobin a1C), Blood High A1C W/ eag 7.4 % 1.0-5.7 % Final [facility] Laboratory: [address], [place] Average Blood Glucose 166 mg/dL Final [facility] Laboratory: [address], [place] Glucose, Fingerstick, Blood Blood Glucose: m g/dl 117 [facility] - [facility]: [address] [place] Glucose, Fingerstick, Blood Blood Glucose: m g/dl 148 [facility]: [address] [place] Glucose, Fingerstick, Blood Blood Glucose: m g/dl 109 [facility]: [address] [place] Urinalysis, Dipstick Color Color yellow [facility]: [address] [place] Color Appearance clear [facility]: [address] [place] Color Glucose negative [facility]: [address] [place] Color Bilirubin negative [facility]: [address], [place] Color Ketones negative [facility]: [address] [place] Color Specific Girdler 1.020 [facility]: [address] [place] Color Blood trace Jacqui [facility] - [facility]: [address] [place] Color PH 5.5 [facility] [address] [place] Color Protein negative [facility]: [address] [place] Color Urobilinogen 0.2 [facility]: [address] [place] Color Nitrites negative [facility]: [address], [place] Color Leukocytes negative [facility]: [address], [place] Urinalysis, Dipstick Color Color yellow [facility]: [address], [place] Color Appearance clear [facility]: [address], [place] Color Glucose negative [facility]: [address] [place] Color Bilirubin negative [facility]: [address] [place] Color Ketones negative [facility]: [address] [place] Color Specific Girdler 1.020 [facility] - [facility]: [address], [place] Color Blood trace [facility]: [address], [place] Color PH 5.5 [facility]: [address], [place] Color Protein negative [facility]: [address], [place] Color Urobilinogen 0.2 [facility]: [address] [facility] 5, [place] Color Nitrites negative [facility]: [address], [place] Color Leukocytes negative [facility]: [address] [place] [address], [place] Glucose, Fingerstick, Blood Blood Glucose: m g/dl 146 [facility] - [facility]: [address] [facility], [place] Past Encounters 07/14/2017 Benign Essential Hypertension; Type 2 Diabetes Mellitus; Mixed Hyperlipidemia Jesus Mascorro Jr, MD: [address] [phone], [place]. 02/21/2017 Gynecologic Examination; Stenosis of Cervix; Type 2 Diabetes Mellitus with Multiple Complications; Benign Essential Hypertension Jesus Mascorro Jr, MD: [address] [id number], [place]. 02/10/2017 Adult Health Examination; Body Mass Index 25-29 - Overweight; Overweight; Benign Essential Hypertension; Type 2 Diabetes Mellitus with Multiple Complications; Mixed Hyperlipidemia; Proteinuric Diabetic Nephropathy; Immunization; Immunization Refused; Hepatitis C Screening Jesus Mascorro Jr, MD: [address] [phone], [place]. Social History Smoking Status Never Smoker Vaccine List Vaccine Type Influenza, injectable, MDCK, quadrivalen t 0.5 mL Plan of Care Reminders Provider Appointments None recorded. Lab None recorded. Referral None recorded. Procedures None recorded. Surgeries None recorded. Imaging None recorded. Vitals 07/14/2017 04:15PM Est Patient Height Weight BMI Blood Pressure 5 ft 2 in 150 lbs 27.4 kg/m2 (1) 180/90 mm[H g] (2) 162/80 mm[Hg] 02/21/2017 09:30AM Est Patient Height Weight BMI Blood Pressure 5 ft 2 in 150.6 lbs 27.5 kg/m2 144/80 mm[Hg] 02/10/2017 03:30PM SKID STRAPPER/EST CPX Height Weight BMI Blood Pressure 5 ft 2 in 152 lbs 27.8 kg/m2 (1) 160/90 mm[H g] (2) 156/90 mm[Hg]
--- OUTSIDE RECORDS SUMMARY | 2019-11-05 21:27 | XMS REPORT | Encounter Summary ---
Author Organization Unknown Address [address] [place] [address] Phone [phone] Care Team Providers Care Butadiene Converter Operator Name Role Phone Dr. Jesus Mascorro 3 [phone] Jesus Mascorro Jr, MD 3 [phone] Reason for Visit hyperlipidemia; hypertension; diabetes Instructions 1. Type 2 diabetes mellitus glucose, fingerstick, blood metformin ER 500 mg tablet,extended re lease 24 hr HbA1c (hemoglobin A1c), blood microalbumin:creatinine ratio, urine 2. Benign essential hypertension amlodipine 10 mg tablet olmesartan 40 mg tablet metoprolol succinate ER 100 mg tablet, extended release 24 hr hydrochlorothiazide 12.5 mg capsule CMP, serum or plasma CBC w/ auto diff TSH, serum or plasma urinalysis, dipstick 3. Mixed hyperlipidemia atorvastatin 10 mg tablet lipid panel, serum Discussion Note: None recorded. Patient educational handouts: No information available. Plan of Care Reminders Provider Appointments None recorded. Lab Glucose, Fingerstick, Blood 05/11/2018 [facility] HbA1C (Hemoglobin a1C), Blood 05/11/2018 [facility] Laboratory Microalbumin:creatinine Ratio, Urine 05/11/2018 [facility] CMP, Serum or Plasma 05/11/2018 [facility] CBC W/ Auto Diff 05/11/2018 [facility] TSH, Serum or Plasma 05/11/2018 [facility] Urinalysis, Dipstick 05/11/2018 [facility]) [facility] Lipid Panel, Serum 05/11/2018 [facility] Referral None recorded. Procedures None recorded. Surgeries None recorded. Imaging None recorded. Medications Name Start Date amlodipine 10 mg tablet Take 1 tablet every day by oral route. atorvastatin 10 mg tablet Take 1 tablet every day by oral route for 90 days. Ecotrin Low Strength 81 mg tablet,enteri c coated Take 1 tablet every day by oral route. hydrochlorothiazide 12.5 mg capsule Take 1 capsule every day by oral route for 90 days. metformin ER 500 mg tablet,extended rele ase 24 hr Take 2 tablets twice a day by oral route. metoprolol succinate ER 100 mg tablet,ex tended release 24 hr Take 1 tablet every day by oral route. olmesartan 40 mg tablet Take 1 tablet every day by oral route. Medications Administered None recorded. Vitals Height Weight BMI Blood Pressure 5 ft 2 in 153.4 lbs 28.1 kg/m2 (1) 154/78 mm[H g] (2) 150/76 mm[Hg] Lab Results None recorded. Allergies Code Code System Name Reaction Severity Status Onset NKDA Problems Name Status Onset Date Source Proteinuric Diabetic Nephropathy Active 02/10/2017 Mixed Hyperlipidemia Active 02/10/2017 Benign Essential Hypertension Active 02/10/2017 Immunization Active 02/10/2017 Type 2 Diabetes Mellitus Active 07/14/2017 Procedures None recorded. Vaccine List Vaccine Type Influenza, injectable, MDCK, quadrivalen t 0.5 mL Social History Smoking Status Never Smoker Past Encounters 05/11/2018 Type 2 Diabetes Mellitus; Benign Essential Hypertension; Mixed Hyperlipidemia Jesus Mascorro Jr, MD: [id number] [facility], [address], [place] [address], Ph. History of Present Illness Diabetes F/U Reported By: Patient HPI: Labs: last A1C result: 7.4. Context: no side effects from medications. Associated Symptoms: no dizziness, no sweats, no headaches, no confusion, no increased thirst, no increased appetite, no increased urination, no blurred vision, no numbness of feet Notes: Endorses medication complian ce. Hypertension Reported By: Patient HPI: Severity: mild. Onset/Timing : gradual onset. Alleviating Factors: relieved with rest, medication. Self Care: not under emotional stress, blood pressure goal: 130/80. Associated Symptoms: no shortness of breath, no fatigue, no decline in exercise capacity Hyperlipidemia Reported By: Patient HPI: Type of hyperlipidemia: comb ined, hypercholesterolemia. Duration: chronic. Current Therapy: currently taking: atorvastatin, last LDL level: 114 date: 114. Complications: no coronary artery disease Review of Systems Comprehensive General Adult ROS Reported By: Patient Constitutional: Constitutional: no fever, no significant weight gain, no significant weight loss, no exercise intolerance Eyes: Eyes: no vision change Cardiovascular: Cardiovascular: no chest aditi n, no shortness of breath when walking, no palpitations, no lightheadedness Respiratory: Respiratory: no cough, no wh eezing, no shortness of breath Gastrointestinal: Gastrointestinal: no abdomin al pain, no nausea, no vomiting, no constipation, normal appetite, no diarrhea Genitourinary: Genitourinary: no difficulty urinating, no increased frequency Musculoskeletal: Musculoskeletal: no muscle w eakness, no arthralgias/joint pain Integumentary: Skin: no rashes, no lacerati on Neurologic: Neurologic: no weakness, no numbness, no dizziness Endocrine: Endocrine: no fatigue Physical Exam Neurology Exam, Cardiology E xam, Diabetes, Diabetic Foot Exam Reported By: Patient Constitutional: Weight: well-nourished. Ambu lation: ambulates independently Head: Size/Trauma: normocephalic Mental Status: Orientation oriented to pers on, oriented to place, oriented to time. Mood/Affect: appropriate mood, appropriate affect. Language: has spontaneous speech. Memory: recent memory intact, remote memory intact. Fund of Knowledge: current events, past history
--- OUTSIDE RECORDS SUMMARY | 2019-11-05 21:27 | XMS REPORT | Encounter Summary ---
Author Organization Unknown Address [address] [place] [address] Phone [phone] Care Team Providers Care Chief Clerk Name Role Phone Dr. Jesus Mascorro 3 [phone] Jesus Mascorro Jr, MD 3 [phone] Reason for Visit Annual physical - female with [employer] Instructions 1. Adult health examination CBC w/ auto diff CMP, serum or plasma HbA1c (hemoglobin A1c), blood lipid panel, serum TSH, serum or plasma urinalysis, dipstick 2. Gynecologic examination pap, IG + HPV mRNA E6/E7 3. Stenosis of cervix 4. Cystocele 5. Screening for malignant neoplasm of b reast MAMMO, screening, bilateral 6. Screening for malignant neoplasm of c olon fecal occult blood, stool 7. Immunization Adacel (Tdap Adolesn/Adult)(PF)2 Lf-(2 .5-5-3-5)-5 Lf/0.5 mL IM syringe 8. Body mass index 25-29 - overweight learning about healthy weight starting a weight loss plan: care inst ructions body mass index: care instructions 9. Overweight 10. Type 2 diabetes mellitus glucose, fingerstick, blood diabetic ophthalmology referral 11. Proteinuric diabetic nephropathy microalbumin:creatinine ratio, urine 12. Benign essential hypertension 13. Mixed hyperlipidemia 14. Vitamin D deficiency vitamin D, 25-hydroxy, total, serum Discussion Note: None recorded. Plan of Care Reminders Provider Appointments Est Patient 02/23/2019 10:15AM Jesus mcpherson Jr, MD Lab CBC W/ Auto Diff 11/05/2018 [facility] Laboratory CMP, Serum or Plasma 11/05/[address] [facility] Laboratory HbA1C (Hemoglobin a1C), Blood 11/05/2018 [facility] Laboratory Lipid Panel, Serum 11/05/2018 [facility] Laboratory TSH, Serum or Plasma 11/05/[address] [facility] Laboratory Urinalysis, Dipstick 11/05/[address] [facility] ([facility]) [facility]obby Glucose, Fingerstick, Blood 11/05/2018 [facility] ([facility] Hobby Microalbumin:creatinine Ratio, Urine 11/05/2018 [facility] Laboratory Fecal Occult Blood, Stool 11/05/[address] [facility] Laboratory Pap, IG + HPV mRNA E6/E7 11/05/2018 [facility] Vitamin D, 25-Hydroxy, Total, Serum 11/05/2018 [facility] Referral Diabetic Ophthalmology Referral 11/05/2018 Nancy Pablo MD Procedures None recorded. Surgeries None recorded. Imaging MAMMO, Screening, Bilateral 11/05/2018 [facility] Medications Name Start Date amlodipine 10 mg tablet Take 1 tablet every day by oral route. atorvastatin 10 mg tablet Take 1 tablet every day by oral route for 90 days. Ecotrin Low Strength 81 mg tablet,enteri c coated Take 1 tablet every day by oral route. hydrochlorothiazide 25 mg tablet Take 1 tablet every day by oral route. metformin ER 500 mg tablet,extended rele ase 24 hr TAKE 2 TABLETS TWICE A DAY olmesartan 40 mg tablet Take 1 tablet every day by oral route. Toprol XL 100 mg tablet,extended release Take 1 tablet every day by oral route. Medications Administered None recorded. Vitals Height Weight BMI Blood Pressure 5 ft 2 in 158 lbs 28.9 kg/m2 (1) 150/80 mm[H g] (2) 140/78 mm[Hg] Lab Results Date Name Specimen Result Interpretation Description Value Range Status Address 11/05/2018 Glucose, Fingerstick, Blood Blood Glucos e: mg/dl 165 [facility] ([facility]) Hobby: [address], [place] 11/05/2018 Urinalysis, Dipstick Color Color light yellow [facility] ([facility]) Hobby: [address], [place] Color Appearance clear [facility] ([facility] Hobby: [address], [place] Color Glucose negative [facility] ([facility] Hobby: [address], [place] Color Bilirubin negative [facility] ([facility]) Hobby: [address], [place] Color Ketones negative [facility] ([facility] Hobby: [address], [place] Color Specific [place] 1.025 [facility] ([facility] [address] [place] Color Blood negative [facility] ([facility]) Hobby: [address], [place] Color PH 5.0 [facility] ([facility]) Hobby: [address], [place] Color Protein negative [facility] ([facility]) Hobby: [address], [place] Color Urobilinogen 0.2 [facility] ([facility]) Hobby: [address], [place] Color Nitrites negative [facility] ([facility]) Hobby: [address], [place] Color Leukocytes negative [facility] ([facility]) Hobby: [address], [place] Allergies Code Code System Name Reaction Severity Status Onset NKDA Problems Name Status Onset Date Source Proteinuric Diabetic Nephropathy Active 02/10/2017 Mixed Hyperlipidemia Active 02/10/2017 Benign Essential Hypertension Active 02/10/2017 Immunization Active 02/10/2017 Type 2 Diabetes Mellitus Active 07/14/2017 Cystocele Active 11/05/2018 Stenosis of Cervix Active 11/05/2018 Procedures Date Name Performed by 11/05/2018 MAMMO, Screening, Bilateral [address] [address] (Work [address]) Vaccine List Vaccine Type Influenza, injectable, MDCK, quadrivalen t 0.5 mL Tdap 11/05/20180.5 mL Social History Tobacco Smoking Status Never Smoker Past Encounters 11/05/2018 Jesus Mascorro Jr, MD: [address] [address], Ph. 11/05/2018 Adult Health Examination; Gynecologic Examination; Stenosis of Cervix; Cystocele; Screening for Malignant Neoplasm of Breast; Screening for Malignant Neoplasm of Colon; Immunization; Body Mass Index 25-29 - Overweight; Overweight; Type 2 Diabetes Mellitus; Proteinuric Diabetic Nephropathy; Benign Essential Hypertension; Mixed Hyperlipidemia; Vitamin D Deficiency Jesus Mascorro Jr, MD: [address] [address], Ph. History of Present Illness Diabetes F/U Reported By: Patient HPI: Labs: last A1C result: 8.0. Context: no side effects from medications. Associated [...] Therapy: currently taking: atorvastatin, last LDL level: 111 date: 111, last HDL level: 38 date: 38. Complications: no coronary artery disease Review of Systems Comprehensive General Adult ROS Reported By: Patient Constitutional: Constitutional: no significa nt weight gain, no significant weight loss Cardiovascular: Cardiovascular: no chest aditi n, no shortness of breath when walking Respiratory: Respiratory: no cough, no wh eezing, no shortness of breath Endocrine: Endocrine: no fatigue Physical Exam Annual Pointer Helper Exam Reported By: Patient Deputy Brand Inspector: Deputy Brand Inspector: present Constitutional: General Appearance: healthy- appearing, well-nourished, well-developed Psychiatric: Orientation: to time, to delfina ce, to person. Mood and Affect: active and alert, normal mood, normal affect Skin: Appearance: no rashes, no le sions Neck: Neck: supple, trachea midlin e, no masses. Thyroid: no enlargement, no nodules, non-tender Lungs: Auscultation: clear to auscu ltation, no wheezing Cardiovascular: Auscultation: RRR, no murmur . Peripheral Vascular: no LLE edema, no RLE edema, no varicosities Abdomen: Auscultation/Inspection/Palp ation: normal bowel sounds, soft, non- distended, no tenderness, no hepatomegaly, no masses, no CVA tenderness. Hernia: none palpated Female Genitalia: Vulva: no masses, no lesions . Vagina: no tenderness, no erythema, no abnormal vaginal discharge, cystocele. Cervix: no discharge, no cervical motion tenderness, friable; cervical stenosis. Adnexa/Parametria: no parametrial tenderness, no adnexal tenderness Lymph Nodes: Palpation: non tender subman dibular nodes, non tender axillary nodes Rectal Exam: Rectum: normal perianal skin
--- OUTSIDE RECORDS SUMMARY | 2019-11-05 21:27 | XMS REPORT | Encounter Summary ---
Author Organization Unknown Address [address] [place] [address] Phone [phone] Care Team Providers Care Experimental Display Builder Name Role Phone Dr. Jesus Mascorro 3 [phone] Jesus Mascorro Jr, MD 3 [phone] Reason for Visit hypertension Instructions 1. Type 2 diabetes mellitus glucose, fingerstick, blood 2. Benign essential hypertension Discussion Note: None recorded. Patient educational handouts: No information available. Plan of Care Reminders Provider Appointments Return to Office on or around 10/05/2018 Renetta Mascorro Jr, MD Lab Glucose, Fingerstick, Blood 07/06/2018 [facility] ([facility] Referral None recorded. Procedures None recorded. Surgeries [...] tablets twice a day by oral route. olmesartan 40 mg tablet Take 1 tablet every day by oral route. Toprol XL 100 mg tablet,extended release Take 1 tablet every day by oral route. Medications Administered None recorded. Vitals Height Weight BMI Blood Pressure 5 ft 2 in 151 lbs 27.6 kg/m2 134/72 mm[Hg] Lab Results None recorded. Allergies Code [...] History Smoking Status Never Smoker Past Encounters 07/06/2018 Type 2 Diabetes Mellitus; Benign Essential Hypertension Jesus Mascorro Jr, MD: [address] [facility], [address], [place] [address], Ph. History of Present Illness Diabetes F/U [...] breath Endocrine: Endocrine: no fatigue Physical Exam Neurology Exam, Cardiology E xam Reported By: Patient Constitutional: Weight: well-nourished. Ambu lation: ambulates independently Head: Size/Trauma: normocephalic Mental Status: Orientation oriented to pers on, oriented to place, oriented to time. Mood/Affect: appropriate mood, appropriate affect. Language: has spontaneous speech. Memory: recent memory intact, remote memory intact. Fund of Knowledge: current events, past history
--- NOTE | 2019-11-05 21:54 | Diagnostic Imaging Report ---
KNEE 2VIEW RT - HOPD - 2 views HISTORY: Pain. Pain and swelling for 3 days. COMPARISON: None available. FINDINGS: Bones: No acute fracture or dislocation. Joints: Tricompartmental osteophyte formation and joint space narrowing. Soft tissues: Mild prepatellar soft tissue swelling. No sizable suprapatellar effusion. Vascular opacification. IMPRESSION: 1. Tricompartmental degenerative osteoarthrosis. 2. Nonspecific prepatellar soft tissue swelling. No sizable suprapatellar effusion. Signed by: Amador Jimenez MD on 11/05/2019 9:51 PM
--- NOTE | 2019-11-05 22:05 | Emergency Department Note ---
History of Present Illnes History of Present Illness Chief Complaint: Extremity Trauma/Pain History of Present Illness This is a 64 year old female c/o lateral right knee pain for 5 days no trauma Historian: Patient Arrival Mode: Car General Surgeon Required: No Onset (how long ago): day(s) Radiation: Reports non-radiation Severity: moderate Onset quality: gradual Duration (how long): day(s) Timing of current episode: constant Progression: worsening Relieving factors: immobilization Exacerbating factors: none, movement Associated symptoms: Reports other Past Medical/Family History Physician Review I have reviewed the patient's past medical and family history. Any updates have been documented here. Past Medical History Recent Fever: No Clinical Suspicion of Infectio: No New/Unexplained Change in Ment: No Past Medical History: Diabetes Past Surgical History: None Social History Smoking Cessation: Never Smoker Counseling Performed: No Alcohol Use: None Any Illegal Drug Use: No Physically hurt or threatened: No Other Any Pre-Existing Lines (PICC,: No Review of Systems Review of Systems Constitutional: Reports no symptoms EENTM: Reports no symptoms Cardiovascular: Reports no symptoms Respiratory: Reports no symptoms Gastrointestinal: Reports no symptoms Genitourinary: Reports no symptoms Musculoskeletal: Reports joint pain Integumentary: Reports no symptoms Neurological: Reports no symptoms Psychological: Reports no symptoms Endocrine: Reports no symptoms Hematological/Lymphatic: Reports no symptoms Physical Exam Related Data Allergies: Coded Allergies: No Known Allergies (Unverified , 11/05/19) Triage Vital Signs Vital Signs Date Time Temp Pulse Resp B/P (MAP) Pulse Ox O2 Delivery O2 Flow Rate FiO2 11/05/19 21:00 97.7 100 18 106/74 97 Room Air Vital signs reviewed: Yes (no fever) Physical Exam CONSTITUTIONAL Constitutional: Present well-developed, Present well-nourished HENT HENT: Present normocephalic, Present atraumatic, Present oropharynx clear/moist, Present nose normal HENT L/R: Present left ext ear normal, Present right ext ear normal EYES Eyes: Reports PERRL, Reports conjunctivae normal NECK Neck: Present ROM normal PULMONARY Pulmonary: Present effort normal, Present breath sounds normal CARDIOVASCULAR Cardiovascular: Present regular rhythm, Present heart sounds normal, Present capillary refill normal, Present normal rate GASTROINTESTINAL Abdominal: Present soft, Present nontender, Present bowel sounds normal GENITOURINARY Genitourinary: Present exam deferred SKIN Skin: Present warm, Present dry MUSCULOSKELETAL Musculoskeletal: Present ROM normal, Present tenderness, Present swelling, Present other (right knee tender laterally, small effusion, no warmeness) NEUROLOGICAL Neurological: Present alert, Present oriented x 3, Present no gross motor or sensory deficits PSYCHOLOGICAL Psychological: Present mood/affect normal, Present judgement normal Results Imaging Imaging results reviewed: Yes Imaging Comments no acute, DJD Assessment & Plan Medical Decision Making [facility] DJD Reassessment Reassessment doing better after pain med Assessment & Plan Final Impression: (1) Acute pain of right knee (2) Degenerative joint disease of right knee Depart Disposition: HOME, SELF-CARE Last Vital Signs Date Time Temp Pulse Resp B/P (MAP) Pulse Ox O2 Delivery O2 Flow Rate FiO2 11/05/19 21:00 97.7 100 18 106/74 97 Room Air Medications in the ED Acetaminophen 650 mg NOW ONCE PO Last administered on 11/05/19at 21:23; Admin Dose 650 MG; Start 11/05/19 at 21:15; Stop 11/05/19 at 21:16; Status UNV Ketorolac Tromethamine 30 mg NOW ONCE IM Last administered on 11/05/19at 21:20; Admin Dose 30 MG; Start 11/05/19 at 21:15; Stop 11/05/19 at 21:16; Status UNV Physician Attestation Provider Attestation f/u with Dr Saran Vogt for surgical consult, may a steroid injection MAX FELIZ MD Nov 05, 2019 22:05
== END 2019-11-05 22:10 | disposition home or self-care (01) ==
LOC: FSED 21:15
DX: M25.561 Pain in right knee (principal); M17.11 Unilateral primary osteoarthritis, right knee; E11.9 Type 2 diabetes mellitus without complications
CPT/HCPCS: 99283; J1885

== ENCOUNTER 2022-07-20 08:46 | Emergency (ER) | payer OTHER ==
[~2022-07-20] VITALS: Ht 157.5 cm; Wt 72.1 kg
[2022-07-20 08:54] VITALS: O2SAT 97
[2022-07-20] MEDS ORDERED: Morphine 4mg INJECTION 4 MG/ML INJ ONE (09:12)
[2022-07-20] MEDS ORDERED: Morphine 4mg INJECTION 4 MG/ML INJ IM ONE (09:15)
[2022-07-20] MEDS ORDERED: ULTRAM 50MG50 MG PO ×4 (09:56→10:08)
[2022-07-20] MEDS ORDERED: IBUPROFEN 400 MG TAB PO ONE (10:00)
== END 2022-07-20 10:00 | disposition home or self-care (01) ==
LOC: FSED 09:03
DX: G62.9 Polyneuropathy, unspecified (principal); M54.31 Sciatica, right side; I10 Essential (primary) hypertension; E11.9 Type 2 diabetes mellitus without complications; E78.5 Hyperlipidemia, unspecified
CPT/HCPCS: 96372; 99283; J2270